=== PATIENT | male | born 1960 | race Caucasian/White ===

== ENCOUNTER 2018-12-31 15:23 | Emergency (ER) | payer OTHER ==
[~2018-12-31] VITALS: Ht 177.8 cm; Wt 82.1 kg
--- NOTE | 2018-12-31 15:45 | NUR ---
FREDERICK VELASQUEZ AT BEDSIDE FOR MSE.
--- NOTE | 2018-12-31 16:05 | NUR ---
Patient discharged to home in stable conditon. Written and verbal after care instructions given. Patient verbalizes understanding of instructions. ALL BELONGINGS W/ PT. PT SELF-AMBULATED W/O DIFFICULTY. PT WILL D/C VIA PRIVATE AMBULANCE BY REHAB STAFF MEMBER.
[2018-12-31 16:09] VITALS: BP 133/85
== END 2018-12-31 16:09 | disposition home or self-care (01) ==
LOC: ER 15:23
DX: F10.10 Alcohol abuse, uncomplicated (principal); Y90.9 Presence of alcohol in blood, level not specified
CPT/HCPCS: A4663